=== PATIENT | female | born 1995 | race Caucasian/White ===

== ENCOUNTER 2020-09-19 10:14 | Inpatient (IN) | payer SELFPAY ==
[2020-09-19 10:10] VITALS: BMI 20.5
--- NOTE | 2020-09-19 10:45 | PC.NURSE ---
contact info Father, Tamir Williamson,
[2020-09-19 14:00] VITALS: BP 106/70; PULSE 73; RESP 20; TEMP 36.5; O2SAT 96
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
[2020-09-19 15:55] LABS: Basophils % 0.4 %; Eosinophils # 0.1 10^3/uL (0.0-0.8); Eosinophils % 1.4 %; Hematocrit 40.1 % (37.0-47.0); Hemoglobin 13.5 g/dL (11.5-15.3); Lymphocytes # 1.8 10^3/uL (0.8-4.8); Lymphocytes % 19.7 %; Mean Corpuscular HGB Conc 33.7 g/dL (30.0-36.0); Mean Corpuscular Hemoglobin 29.9 pg (28.0-34.0); Mean Corpuscular Volume 88.7 fL (81-99); Mean Platelet Volume 9.7 fL (7.4-10.4); Monocytes % 10.7 %; Neutrophils # 6.26 10^3/uL (1.8-7.7); Neutrophils % 67.4 %; Nucleated Red Blood Cells % 0 %; Platelet Count 347 10^3/cmm (130-400); Red Blood Count 4.52 10^6/uL (4.1-5.3); Red Cell Distribution Width 11.9 % (12.1-15.1); White Blood Count 9.3 10^3/uL (4.0-10.0)
[2020-09-19 16:30] LABS: Alanine Aminotransferase 24 U/L (0-33); Alkaline Phosphatase 61 IU/L (35-105); Anion Gap 15.9 (5-19); Aspartate Amino Transferase 50 U/L (0-32); Blood Urea Nitrogen 9 mg/dL (6-20); Calcium 8.5 mg/dL (8.5-10.5); Carbon Dioxide 27 mmol/L (22-29); Chloride 104 mmol/L (98-107); Chol HDL Ratio 3.69 mg/dL (0.0-4.40); Cholesterol 118 mg/dL (0-200); Globulin 2.6 g/dL (1.3-4.6); Glomerular Filtration Rate 121.8 mL/min (90-130); Glucose 101 mg/dL (65-115); HDL Cholesterol 32 mg/dL (60-100); LDL Cholesterol Calculated 72 mg/dL (50-129); LDL HDL Ratio 2.25 RATIO (0.00-3.22); Osmolality Calculated 295 mOsm/kg (285-295); Potassium 3.9 mmol/L (3.5-5.1); Sodium 143 mmol/L (136-145); Thyroid Stimulating Hormone 0.36 uIU/mL (0.27-4.20); Total Bilirubin 0.2 mg/dL (0.15-1.2); Total Protein 6.6 g/dL (6.6-8.7); Triglycerides 72 mg/dL (0-150)
[2020-09-19] MEDS: lurasidone 20 mg Tablet 40 MG PO (16:31)
[2020-09-19] MEDS: trazodone 50 mg Tablet PO (20:04)
[2020-09-19] MEDS: OLANZapine 5 mg ODT PO (20:04)
--- NOTE | 2020-09-19 20:04 | PC.NURSE ---
Addendum entered by Shannan Mccain RN 09/19/20 21:38: Patient is currently resting in bed at this time. Original Note: PRN zyprexa Patient requested something to help her nerves PRn Trazodone Patient requested something for sleep.
[2020-09-19 20:27] VITALS: BP 109/70; PULSE 68; RESP 18; TEMP 36.7; O2SAT 98
[2020-09-20 06:00] VITALS: BP 116/63; PULSE 74; RESP 18; TEMP 37; O2SAT 97
--- NOTE | 2020-09-20 09:55 | PM.NPN ---
Subjective NPU Subjective: Interval history: Patient is more organized today with less redirection required for interview but continues to have baptism preoccupation overvalued ideas, delusions Denies any current mood symptoms, denies any depressed symptoms, denies any suicidal ideation She denies any auditory or visual hallucinations Reports being compliant with medication and denies any medication side effects Reports that her appetite is been good States that she had some difficulty with initiating sleep but eventually slept well after as needed trazodone Mental Status Exam MSE Comments: Sitting in the day room, calm, cooperative, interactive, good eye contact, appropriately groomed and dressed Psychomotor activity is neither increased nor decreased, no agitation Speech is normal rate, normal volume, spontaneous, clear articulation, not pressured Pretty good, full range, not labile Alert and oriented to person, place, and time Memory and concentration are fair, improving Thought process, more organized, linear, no flight of ideas, no looseness of associations Thought content, some overvalued ideas and delusions, not attending to any internal stimuli, no suicidal or homicidal ideation Insight and judgment appear to be fair at this time Vitals/I&O/Wt Last Vital Signs Temp 98.6 F 09/20/20 06:00 Pulse 74 09/20/20 06:00 Resp 18 09/20/20 06:00 BP 116/63 09/20/20 06:00 Pulse Ox 97 09/20/20 06:00 Weight last 48 hrs Weight 54.431 kg Data NPU : 09/19/20 15:37 09/19/20 15:37 A&P Assessment and plan (1) Bipolar disorder: Status: Acute Qualifiers: Active/Remission status: currently active Current bipolar episode type: manic Current episode severity: moderate Qualified Code(s): F31.12 - Bipolar disorder, current episode manic without psychotic features, moderate (2) Cannabis abuse: Status: Acute Additional A&P Information Appears to be improving some but continues to have some delusions, reports difficulty with sleep INCREASE to lurasidone 80 mg every evening with food targeting mood, psychotic symptoms Involuntary Hold Information 96 Hour Hold: 96 Hour Involuntary Admission: Yes Attestations NPU Medical Necessity Statement*: Continues to require psychiatric hospitalization for medication stabilization, coordination for safe discharge Coding Level of Care Code Acute Electric Meter Repairer Helper for Aisha Lopez Diagnoses Bipolar disorder F31.12 Active/Remission status: currently active Current bipolar episode type: manic Current episode severity: moderate Cannabis abuse F12.10
[2020-09-20 14:00] VITALS: BP 116/77; PULSE 76; RESP 20; TEMP 36.9; O2SAT 97
[2020-09-20] MEDS: lurasidone 80 mg Tablet PO (16:26)
[2020-09-20 21:36] VITALS: BP 99/60; PULSE 70; RESP 20; TEMP 36.5; O2SAT 98
[2020-09-20] MEDS: trazodone 50 mg Tablet PO (23:45)
--- NOTE | 2020-09-21 01:04 | PC.NURSE ---
trazodone 50mg po given for insomnia.
[2020-09-21 05:56] VITALS: BP 111/72; PULSE 78; RESP 18; TEMP 36.5; O2SAT 95
--- NOTE | 2020-09-21 09:58 | PM.NPN ---
Subjective NPU Subjective: Interval history: Patient appears more organized today, denying any depressive symptoms, denies any suicidal ideations Denies any auditory or visual hallucinations, patient continues to state overvalued ideas with regards to circumstances leading to hospitalization and why she is in the hospital Continues to have some jewish themed overvalued ideas Reports being compliant with her medication and denies any medication side effects Reports having a good appetite Reports having fair sleep Per staff report, no interval behavioral disturbances Mental Status Exam MSE Comments: Standing in the unit hallway, polite, interactive, good eye contact, appropriately groomed and dressed Psychomotor activity is neither increased nor decreased, no agitation Speech is normal rate, normal volume, spontaneous, clear articulation, not pressured I feel okay, full range, not labile Alert and oriented to person, place, and time Memory and concentration are fair to intact per interview Thought process, more organized, linear, no flight of ideas, no looseness of associations Thought content, some overvalued ideas, not attending to any internal stimuli, no suicidal or homicidal ideation Insight and judgment appear to be fair at this time Vitals/I&O/Wt Last Vital Signs Temp 97.7 F 09/21/20 05:56 Pulse 78 09/21/20 05:56 Resp 18 09/21/20 05:56 BP 111/72 09/21/20 05:56 Pulse Ox 95 09/21/20 05:56 Weight last 48 hrs Weight 54.431 kg Data NPU : 09/19/20 15:37 09/19/20 15:37 A&P Assessment and plan (1) Bipolar disorder: Status: Acute Qualifiers: Active/Remission status: currently active Current bipolar episode type: manic Current episode severity: moderate Qualified Code(s): F31.12 - Bipolar disorder, current episode manic without psychotic features, moderate (2) Cannabis abuse: Status: Acute Additional A&P Information Improving, more organized, less delusional, continues to have some jewish themed overvalued ideas, no active mood symptoms, no suicidal ideation INCREASE to lurasidone 120 mg every evening with food targeting mood Involuntary Hold Information 96 Hour Hold: 96 Hour Involuntary Admission: Yes Attestations NPU Medical Necessity Statement*: Continues to require psychiatric hospitalization for medication stabilization, coordination for safe discharge Coding Level of Care Code Acute Boiler Blower for [facility] Jessica Diagnoses Bipolar disorder F31.12 Active/Remission status: currently active Current bipolar episode type: manic Current episode severity: moderate Cannabis abuse F12.10
[2020-09-21] MEDS: nicotine 21 mg Patch 1 PATCH TRANSDERMA (12:24)
[2020-09-21 14:00] VITALS: BP 98/60; PULSE 71; RESP 16; TEMP 37; O2SAT 95
[2020-09-21] MEDS: lurasidone 80 mg Tablet 120 MG PO (16:44)
[2020-09-21] MEDS: OLANZapine 5 mg ODT PO (17:34)
[2020-09-21 21:46] VITALS: BP 104/73; PULSE 79; RESP 17; TEMP 37.2; O2SAT 98
[2020-09-22 06:00] VITALS: BP 94/60; PULSE 80; RESP 17; TEMP 36.4; O2SAT 94
[2020-09-22] MEDS: hyDROXYzine 25 mg Capsule 50 MG PO (11:28)
--- NOTE | 2020-09-22 11:43 | PM.NPN ---
Subjective NPU Subjective: Interval history: Patient states that she is looking forward to going home States that she slept well last night and that her appetite is been good Reports being compliant with her medication and denies any medication side effects Denies any interval depressed symptoms, denies any suicidal ideation Denies any auditory or visual hallucinations, continues to report some presybeterian themed overvalued ideas but no longer making delusional statements Per staff, no interval behavioral disturbances Mental Status Exam MSE Comments: Sitting on her bed, appropriately groomed and dressed wearing hospital scrubs, calm, cooperative, interactive, good eye contact Psychomotor activity is neither increased nor decreased, no agitation Speech is normal rate, normal volume, spontaneous, clear articulation, not pressured I feel good, full range, slightly expansive, not labile Alert and oriented to person, place, and time Memory and concentration are fair to intact per interview Thought process, more organized, linear, no flight of ideas, no looseness of associations Thought content, some overvalued ideas, no hallucinations, no suicidal or homicidal ideation Insight and judgment appear to be fair at this time Vitals/I&O/Wt Last Vital Signs Temp 97.5 F L 09/22/20 06:00 Pulse 80 09/22/20 06:00 Resp 17 09/22/20 06:00 BP 94/60 09/22/20 06:00 Pulse Ox 94 09/22/20 06:00 Data NPU : 09/19/20 15:37 09/19/20 15:37 A&P Assessment and plan (1) Bipolar disorder: Status: Acute Qualifiers: Active/Remission status: currently active Current bipolar episode type: manic Current episode severity: moderate Qualified Code(s): F31.12 - Bipolar disorder, current episode manic without psychotic features, moderate (2) Cannabis abuse: Status: Acute Additional A&P Information Slightly expansive and elevated but not manic, not psychotic, improving CONTINUE current medication, continue to monitor Involuntary Hold Information 96 Hour Hold: 96 Hour Involuntary Admission: Yes Attestations NPU Medical Necessity Statement*: Continues to require psychiatric hospitalization for medication stabilization, coordination for safe discharge Coding Level of Care Code Acute Processing Archivist for Aisha Lopez Diagnoses Bipolar disorder F31.12 Active/Remission status: currently active Current bipolar episode type: manic Current episode severity: moderate Cannabis abuse F12.10
[2020-09-22 14:00] VITALS: BP 103/68; PULSE 76; RESP 16; TEMP 37.4; O2SAT 94
[2020-09-22] MEDS: lurasidone 80 mg Tablet 120 MG PO (17:29)
[2020-09-22] MEDS: nicotine 2 mg Gum BUCCAL (20:31)
[2020-09-22] MEDS: OLANZapine 5 mg ODT PO (21:27)
--- NOTE | 2020-09-22 21:38 | PC.NURSE ---
PRN Olanzapine 5mg PO given for anxiety and agitation.
--- NOTE | 2020-09-22 21:39 | PC.NURSE ---
Behavior pt refused medication initally. Verbalized she would take it, visteril openned, she threw them in water, refused them. She did take her Olazepine that was offered.pt refused medication initally. Verbalized she would take it, visteril openned, she threw them in water, refused them. She did take her Olazepine that was offered. Pt agitated, tearing up books in the dayroom, snacks tossed on tables and floor, talking and rambling about Augustus- would never hurt me, taisha, and idolizing Eminime the hidalgo.. Pt took the phone out of another patients hand while speaking to family, very intrusive, not able to re-direct, wandering in pt rooms, taking down hospital signage from desk, she removed water glass from another pt hand while taking her meds. staff asked pt to clear her mess up, refused. Security called. 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 very upset that she is still here. wants to leave the unit. expectation set by staff.
[2020-09-22 22:00] VITALS: BP 102/61; PULSE 83; RESP 18; TEMP 37; O2SAT 98
--- NOTE | 2020-09-22 22:36 | PC.NURSE ---
Contacted physician d/t behavior pt is upset about not leaving unit, physician expressed he did not tell the patient she could leave the unit, that he felt pt was decompensating, and still needed stabilization. order received for additional 10mg Olanzepine IM if patient refused a 10mg Olanzepine PO medication. One time order placed.
--- NOTE | 2020-09-22 22:44 | PC.NURSE ---
Follow up to 5mg PO Zyprexa Zydis at 2126 pt is still upset, rambling about the worlds smallest violin, straight up gangster, : and I will be in the dayroom continues to escalate even with Nurse at her side, physican called, orders placed for additional 10mg of Zyprexa Zydis.
[2020-09-22] MEDS: OLANZapine 10 mg ODT PO (22:54)
--- NOTE | 2020-09-22 23:00 | PC.NURSE ---
Additional dose of Per Physican order, the 10mg PO Zyprexa given, pt is in the dayroom with Nurse. Pt did clean up the mess she created, she is more agreeable with requests, and she is much calmer. responded better to male nurses requests. she continues to talk rapidly, change topics, make off the wall statements, but seems to be calm when interacting with nurse in dayroom. Pt is demanding, intrusive, but she is beginning to decrease in her unacceptable behavior and has stopped using foul language. Pt took the sheet off her bed, made a head covering, a cape, then put it in the chair. will continue to observe patient behavior for change until the end of shift.
--- NOTE | 2020-09-22 23:58 | PC.NURSE ---
Patient requested something for her shoulder ; because it hurts She had Tylenol 650mg PO ordered. I got it for her and at time of taking it she refused med. Spitting tabs into her water cup. There for two tabs 325mg each were wasted.
[2020-09-23 06:00] VITALS: BP 123/89; PULSE 62; RESP 18; TEMP 36.4; O2SAT 97
--- NOTE | 2020-09-23 09:57 | PM.NPN ---
Subjective NPU Subjective: Interval history: Overnight report that the patient had been extremely disruptive, throwing things around on the unit, yelling, requiring frequent redirection as well as as needed medication on a couple of occasions. Patient continues to have hyper latter-day preoccupations and yelling at the interviewer this morning stating that her name is not Tammie and that her name is Lucifer. Patient was denying any auditory or visual destinations Patient did not answer any more questions and would not participate in interview storming out of the day room Mental Status Exam MSE Comments: Initially sitting in the day room but eventually standing and yelling, storming out of the room Psychomotor activity, restless, somewhat decreased, physically agitated and verbally agitated No stated mood but visibly upset, yelling, emotionally labile Speech was loud but not pressured Alert and oriented to person, place, and time Memory and concentration are fair to intact per interview Thought process, circumstantial with loose associations Thought content, hyper latter-day delusions, did not appear to be attending to internal stimuli although patient occasionally making gestures around the room when talking but did not appear to be internally preoccupied, no suicidal or homicidal ideation Insight and judgment appear to be impaired Vitals/I&O/Wt Last Vital Signs Temp 97.5 F L 09/23/20 06:00 Pulse 62 09/23/20 06:00 Resp 18 09/23/20 06:00 BP 123/89 09/23/20 06:00 Pulse Ox 97 09/23/20 06:00 Data NPU : 09/19/20 15:37 09/19/20 15:37 A&P Assessment and plan (1) Bipolar disorder: Status: Acute Qualifiers: Active/Remission status: currently active Current bipolar episode type: manic Current episode severity: moderate Qualified Code(s): F31.12 - Bipolar disorder, current episode manic without psychotic features, moderate (2) Cannabis abuse: Status: Acute Additional A&P Information Patient's overnight actions were initially thought to be behavioral but patient appears to be more preoccupied with hyper latter-day delusions and does not appear to fully understand her current condition or level of impairment related to her condition and need for treatment DECREASE lurasidone to lurasidone 80 mg every evening START Depakote ER 250 mg twice daily targeting mood We will continue to monitor to include monitoring CBC and liver function after initiating Depakote, baseline labs unremarkable Involuntary Hold Information 96 Hour Hold: 96 Hour Involuntary Admission: Yes Attestations NPU Medical Necessity Statement*: Continues to require psychiatric hospitalization for medication stabilization Coding Level of Care Code Acute Athlete Manager for [facility] Diagnoses Bipolar disorder F31.12 Active/Remission status: currently active Current bipolar episode type: manic Current episode severity: moderate Cannabis abuse F12.10
[2020-09-23] MEDS: divalproex ER 250 mg Tablet (24H) PO ×2 (11:21→17:29)
[2020-09-23] MEDS: OLANZapine 5 mg ODT PO ×2 (11:22→15:44)
[2020-09-23] MEDS: hyDROXYzine 25 mg Capsule 50 MG PO (12:40)
[2020-09-23 14:00] VITALS: BP 123/89; PULSE 62; RESP 18; TEMP 36.4; O2SAT 97
[2020-09-23] MEDS: acetaminophen 325 mg Tablet 650 MG PO (15:40)
[2020-09-23] MEDS: nicotine 2 mg Gum BUCCAL (15:47)
[2020-09-23 16:06] VITALS: BP 96/54; PULSE 87; RESP 18; TEMP 36.2; O2SAT 96
[2020-09-23] MEDS: lurasidone 80 mg Tablet PO (17:29)
[2020-09-23 19:48] VITALS: BP 117/70; PULSE 84; RESP 18; TEMP 36.6; O2SAT 96
[2020-09-23] MEDS: OLANZapine 10 mg TABLET PO (21:03)
[2020-09-23] MEDS: haloperidol 5 mg Tablet PO (21:03)
--- NOTE | 2020-09-23 21:05 | PC.NURSE ---
pt requested sleeping med. rn stated what was given night before. haldol 5mg po given at this time.
--- NOTE | 2020-09-23 22:24 | PC.NURSE ---
pt resting quietly in room with both eyes closed.
[2020-09-24 06:00] VITALS: RESP 15
[2020-09-24] MEDS: divalproex ER 250 mg Tablet (24H) PO (08:20)
--- NOTE | 2020-09-24 10:00 | PC.NURSE ---
Patient requesting something for anxiety
[2020-09-24] MEDS: hyDROXYzine 25 mg Capsule 50 MG PO (10:01)
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
[2020-09-24 11:12] VITALS: RESP 15
[2020-09-24] MEDS: OLANZapine 5 mg ODT PO ×2 (11:25→15:32)
--- NOTE | 2020-09-24 11:25 | PC.NURSE ---
Patient came to the nurses station requesting something for anxiety. Stated Its the little pill that dissolves .
== END 2020-09-24 16:35 | disposition home or self-care (01) | DRG 885 ==
PROVIDERS: Admitting Provider Psychiatry & Neurology Psychiatry; Visit Provider Psychiatry & Neurology Psychiatry
DX: F31.12 Bipolar disorder, current episode manic without psychotic features, moderate (principal); F12.10 Cannabis abuse, uncomplicated
CPT/HCPCS: 80053; 80061; 84443; 85025